=== PATIENT | male | born 1995 | race Caucasian/White ===

== ENCOUNTER 2017-10-16 14:12 | Emergency (ER) | payer OTHER ==
[2017-10-16 14:21] VITALS: BP 140/67; PULSE 108; RESP 18; TEMP 98
[2017-10-16] MEDS ORDERED: DIPH,PERTUS(ACELL)TETVAC-LF 0.5 ML VIAL IM ONE (14:23)
--- NOTE | 2017-10-16 15:27 | XR ---
EXAMINATION TYPE: XR toes RT DATE OF EXAM: 10/16/2017 COMPARISON: NONE HISTORY: Staple gun injury. Pain TECHNIQUE: 3 views FINDINGS: I see no fracture nor dislocation. Joint spaces are normal. There is no sign of a foreign b juan luis. IMPRESSION: Normal right big toe exam.
--- NOTE | 2017-10-16 15:29 | ED ---
General Adult HPI - General Chief complaint: Skin/Abscess/Foreign Body Stated complaint: stepped on metal staple Time Seen by Provider: 10/16/17 14:23 Source: patient, RN notes reviewed Mode of arrival: ambulatory Limitations: no limitations - History of Present Illness Initial comments: 22-year-old male presents to the emergency department for a chief complaint of toe injury earlier today. Patient states there was a stable in his shoe and he stepped on it while putting his shoe on. Patient denies that the staple went through the sole of his shoe. Patient was able to pull out the staple. Patient has not yet cleaned the toe thoroughly. Patient states the toe is somewhat tender to touch. Patient denies any other injuries. Patient did not fall or hit his head.Patient has no other complaints at this time including shortness of breath, chest pain, abdominal pain, nausea or vomiting, headache, or visual changes. - Related Data Previous Rx's Medication Instructions Recorded Omeprazole [PriLOSEC] 20 mg PO AC-BRKFST #30 cap 08/22/14 Ondansetron Odt [Zofran Odt] 4 mg PO Q8HR PRN #10 tab 08/22/14 Amoxicillin/Potassium Clav 1 tab PO Q12HR #20 tab 10/16/17 [Augmentin 875-125 Tablet] Ibuprofen [Motrin] 600 mg PO Q8HR PRN #20 tab 10/16/17 Allergies Allergy/AdvReac Type Severity Reaction Status Date / Time No Known Allergies Allergy Verified 10/16/17 14:21 Review of Systems ROS Statement: Those systems with pertinent positive or pertinent negative responses have been documented in the HPI. ROS Other: All systems not noted in ROS Statement are negative. Past Medical History Past Medical History: No Reported History History of Any Multi-Drug Resistant Organisms: None Reported Past Surgical History: Hernia Repair, Orthopedic Surgery Additional Past Surgical History / Comment(s): eye, Past Psychological History: No Psychological Hx Reported Smoking Status: Current every day smoker Past Alcohol Use History: None Reported Past Drug Use History: Marijuana General Exam Limitations: no limitations General appearance: alert, in no apparent distress Head exam: Present: atraumatic, normocephalic, normal inspection Eye exam: Present: normal appearance ENT exam: Present: normal exam, mucous membranes moist Neck exam: Present: normal inspection, full ROM Respiratory exam: Present: normal lung sounds bilaterally. Absent: respiratory distress, wheezes, rales, rhonchi, stridor Cardiovascular Exam: Present: regular rate, normal rhythm, normal heart sounds. Absent: systolic murmur, diastolic murmur, rubs, gallop, clicks Extremities exam: Present: full ROM (Full range of motion of the right great toe ), tenderness (Mild tenderness to the plantar aspect of the right great toe), normal capillary refill (Refill less than 2 seconds and radial pulse 2+ in the right lower extremity.), other (There is no visible skin defect in the plantar aspect of the right great toe. No foreign bodies identified. No signs of infection or cellulitic changes.). Absent: pedal edema, joint swelling (No swelling noted) Course Vital Signs 10/16/17 14:19 Temperature 98 F Pulse Rate 108 H Respiratory 18 Rate Blood Pressure 140/67 O2 Sat by Pulse 100 Oximetry Medical Decision Making - Medical Decision Making 22-year-old male presents to the emergency determine for chief complaint of right toe injury. Patient had a staple inside of his shoe that he stepped on and pulled out. Patient denies that the staple went through the sole of her shoe but fell in his shoe instead. Patient is able to walk on it. On exam patient has full range of motion of the toe with mild tenderness on the plantar aspect. No signs of infection. No breaks in the skin that are visible. X-ray shows no acute fracture or foreign body. Patient was given a tetanus shot in the emergency department. Patient was given Augmentin which she was educated to take if he notices any signs of infection. He is educated that he probably doesn't need the Augmentin so only to take if he sees any spreading redness or drainage from the area.. He will do warm soaks of the foot. Foot was soaked in warm soapy water in the emergency department. He will return to the emergency department if he has any other worsening symptoms. He will follow up with primary care in 1-2 days. Disposition Clinical Impression: Puncture wound of toe Disposition: HOME SELF-CARE Condition: Good Instructions: Puncture Wound (ED), RICE Therapy (ED) Additional Instructions: Please take antibiotic as directed. Please take Motrin for pain. Rest ice and elevate the right foot. Do warm soaks of the right foot to prevent infection. Follow-up with primary care in 1-2 days. Return to the emergency department if you have any worsening symptoms including worsening pain or fever or signs of infection. Prescriptions: Amoxicillin/Potassium Clav [Augmentin 875-125 Tablet] 1 tab PO Q12HR #20 tab Ibuprofen [Motrin] 600 mg PO Q8HR PRN #20 tab PRN Reason: Pain Is patient prescribed a controlled substance at d/c from ED?: No Referrals: Tejas Thompson MD [Primary Care Provider] - 1-2 days Time of Disposition: 15:28
== END 2017-10-16 15:38 | disposition home or self-care (01) ==
LOC: EC 14:12
DX: S91.131A Puncture wound without foreign body of right great toe without damage to nail, initial encounter (principal); F17.200 Nicotine dependence, unspecified, uncomplicated; Z23 Encounter for immunization; W26.8XXA Contact with other sharp object(s), not elsewhere classified, initial encounter; Y92.69 Other specified industrial and construction area as the place of occurrence of the external cause; Y99.0 Civilian activity done for income or pay
CPT/HCPCS: 90471; 90715; 99283

== ENCOUNTER 2018-10-03 09:44 | Inpatient (IN) | payer OTHER ==
[2018-10-03] MEDS ORDERED: PANTOPRAZOLE 40 MG/10 ML VIAL IVP STA (10:06)
[2018-10-03] MEDS ORDERED: SODIUM CHLORIDE 0.9% 1,000 ML IV STA ×2 (10:06)
--- NOTE | 2018-10-03 10:09 | ED ---
GI Bleed HPI <RodgerSilvano - Last Filed: 10/03/18 10:59> - General Source: patient, RN notes reviewed, old records reviewed Mode of arrival: ambulatory Limitations: no limitations <Carli Cuevasily - Last Filed: 10/03/18 11:08> - General Chief complaint: GI Bleed Stated complaint: rectal bleed-very pale Time Seen by Provider: 10/03/18 09:59 - History of Present Illness Initial comments: Patient is a 23-year-old male who presents emergency department today with 1 month of right right red blood per rectum after having a bowel movement. He states over the past 2 weeks is been increasingly fatigued, feeling dizzy, had near syncopal episodes. Patient arrives to emergency department today with his family appearing very pale. Patient reports he did have a lot of bright red blood in the toilet today after having a BM. Patient reports that he will have occasional soft and hard stools. He has no significant past medical history, is not on blood thinners. Patient states that he's had no other symptoms including abdominal pain, nausea or vomiting. Patient states that he had a previous herni a repair surgery many years ago by Dr. Ponce. (Helen Cuevas) - Related Data Home Medications Medication Instructions Recorded Confirmed Acetaminophen Tab [Tylenol Tab] 1,000 mg PO Q6HR PRN 10/03/18 10/03/18 Ibuprofen [Motrin Ib] 400 mg PO Q6H PRN 10/03/18 10/03/18 Allergies Allergy/AdvReac Type Severity Reaction Status Date / Time No Known Allergies Allergy Verified 10/03/18 10:10 Review of Systems ROS Other: All systems not noted in ROS Statement are negative. <Silvano Soares - Last Filed: 10/03/18 10:59> ROS Other: All systems not noted in ROS Statement are negative. <Helen Cuevas - Last Filed: 10/03/18 11:08> ROS Statement: Those systems with pertinent positive or pertinent negative responses have been documented in the HPI. Past Medical History Past Medical History: No Reported History History of Any Multi-Drug Resistant Organisms: None Reported Past Surgical History: Hernia Repair, Orthopedic Surgery Additional Past Surgical History / Comment(s): eye, Past Psychological History: No Psychological Hx Reported Smoking Status: Former smoker Past Alcohol Use History: None Reported Past Drug Use History: Marijuana <FaithHelen - Last Filed: 10/03/18 11:08> General Exam Limitations: no limitations General appearance: alert, in no apparent distress Head exam: Present: atraumatic, normocephalic, normal inspection Eye exam: Present: normal appearance, PERRL, EOMI. Absent: scleral icterus, conjunctival injection, periorbital swelling ENT exam: Present: normal exam, mucous membranes moist Neck exam: Present: normal inspection. Absent: tenderness, meningismus, lymphadenopathy Respiratory exam: Present: normal lung sounds bilaterally. Absent: respiratory distress, wheezes, rales, rhonchi, stridor Cardiovascular Exam: Present: normal rhythm, tachycardia (Tachycardic, 130 bpm.), normal heart sounds. Absent: regular rate, systolic murmur, diastolic murmur, rubs, gallop, clicks GI/Abdominal exam: Present: soft, normal bowel sounds. Absent: distended, tenderness, guarding, rebound, rigid Rectal exam: Present: normal inspection, hemorrhoids (External hemorrhoids, no significant bleeding noted.) Extremities exam: Present: normal inspection, full ROM, normal capillary refill. Absent: tenderness, pedal edema, joint swelling, calf tenderness Back exam: Present: normal inspection Neurological exam: Present: alert, oriented X3, CN II-XII intact Psychiatric exam: Present: normal affect, normal mood Skin exam: Present: warm, dry, intact, normal color, pallor (Injectable pallor, tongue pallor noted.). Absent: rash <FaithHelen - Last Filed: 10/03/18 11:08> - General Exam Comments Initial Comments: 23-year-old male. Patient appears very pale, weak. (Helen Cuevas) Course <Silvano Soares - Last Filed: 10/03/18 10:59> Vital Signs 10/03/18 09:50 Temperature 99.4 F Pulse Rate 130 H Respiratory 18 Rate Blood Pressure 126/66 O2 Sat by Pulse 100 Oximetry - Reevaluation(s) Reevaluation #1: 10/03/18 10:59 PA supervision: I proceeded [id number] evaluation the patient she's been suffering from intermittent rectal bleeding for the past month is feeling very weak lightheaded he states he's had a call to get anywhere in his house. No nausea vomiting. No history of any GI complaints or abnormalities. He was found to be very anemic and pale upon examination he does have a hemoglobin level II.5. Patient will be admitted to intensive care unit blood transfusions have been ordered. GI as well as ICU will be consulted. (Silvano Soares) Medical Decision Making - Lab Data Result diagrams: 10/03/18 10:25 10/03/18 10:25 <Silvano Soares - Last Filed: 10/03/18 10:59> - Lab Data Result diagrams: 10/03/18 10:25 10/03/18 10:25 <Helen Cuevas - Last Filed: 10/03/18 11:08> - Medical Decision Making Patient is a 23-year-old male presents emergency department today for evaluation for bloody bowel movements for the past month. Over the past week he's had increasing fatigue, shortness of breath, near-syncopal episodes. He rinsed emergency department extremely pale. Generalized weakness. Patient had lab work and IV initiated. Patient's hemoglobin is significantly low at 2.5. On rectal exam he does have some minor external hemorrhoids but no significant bleeding noted at this time. Patient was given 3 units of PRBCs. Patient case assessment Dr. Soares who also examined the Patient. Patient was admitted to the ICU for low hemoglobin, lower GI bleed. Patient's family relates that he has a positive family history for Crohn's disease. He denies any abdominal pain at this time. (Helen Cuevas) - Lab Data Lab Results 10/03/18 10/03/18 10/03/18 Range/Units 10:25 10:25 10:25 WBC 4.4 (3.8-10.6) k/uL RBC 1.61 L (4.30-5.90) m/uL Hgb 2.5 L* (13.0-17.5) gm/dL Hct 9.9 L* (39.0-53.0) % MCV 61.8 L (80.0-100.0) fL MCH 15.5 L (25.0-35.0) pg MCHC 25.0 L (31.0-37.0) g/dL RDW 18.6 H (11.5-15.5) % Plt Count 225 (150-450) k/uL Neutrophils % 58 % Lymphocytes % 29 % Monocytes % 8 % Eosinophils % 2 % Basophils % 1 % Neutrophils # 2.6 (1.3-7.7) k/uL Lymphocytes # 1.3 (1.0-4.8) k/uL Monocytes # 0.3 (0-1.0) k/uL Eosinophils # 0.1 (0-0.7) k/uL Basophils # 0.1 (0-0.2) k/uL Hypochromasia Marked Poikilocytosis Moderate Anisocytosis Slight Microcytosis Marked Sodium 139 (137-145) mmol/L Potassium 3.5 (3.5-5.1) mmol/L Chloride 108 H (98-107) mmol/L Carbon Dioxide 23 (22-30) mmol/L Anion Gap 8 mmol/L BUN 8 L (9-20) mg/dL Creatinine 0.75 (0.66-1.25) mg/dL Est GFR (CKD-EPI)AfAm >90 (>60 ml/min/1.73 sqM) Est GFR (CKD-EPI)NonAf >90 (>60 ml/min/1.73 sqM) Glucose 90 (74-99) mg/dL Plasma Lactic Acid Ankur 2.0 (0.7-2.0) mmol/L Calcium 9.0 (8.4-10.2) mg/dL Total Bilirubin 0.2 (0.2-1.3) mg/dL AST 11 L (17-59) U/L ALT 19 L (21-72) U/L Alkaline Phosphatase 44 (38-126) U/L Total Protein 6.4 (6.3-8.2) g/dL Albumin 4.2 (3.5-5.0) g/dL Stool Occult Blood (Negative) 10/03/18 Range/Units 10:42 WBC (3.8-10.6) k/uL RBC (4.30-5.90) m/uL Hgb (13.0-17.5) gm/dL Hct (39.0-53.0) % MCV (80.0-100.0) fL MCH (25.0-35.0) pg MCHC (31.0-37.0) g/dL RDW (11.5-15.5) % Plt Count (150-450) k/uL Neutrophils % % Lymphocytes % % Monocytes % % Eosinophils % % Basophils % % Neutrophils # (1.3-7.7) k/uL Lymphocytes # (1.0-4.8) k/uL Monocytes # (0-1.0) k/uL Eosinophils # (0-0.7) k/uL Basophils # (0-0.2) k/uL Hypochromasia Poikilocytosis Anisocytosis Microcytosis Sodium (137-145) mmol/L Potassium (3.5-5.1) mmol/L Chloride (98-107) mmol/L Carbon Dioxide (22-30) mmol/L Anion Gap mmol/L BUN (9-20) mg/dL Creatinine (0.66-1.25) mg/dL Est GFR (CKD-EPI)AfAm (>60 ml/min/1.73 sqM) Est GFR (CKD-EPI)NonAf (>60 ml/min/1.73 sqM) Glucose (74-99) mg/dL Plasma Lactic Acid Ankur (0.7-2.0) mmol/L Calcium (8.4-10.2) mg/dL Total Bilirubin (0.2-1.3) mg/dL AST (17-59) U/L ALT (21-72) U/L Alkaline Phosphatase (38-126) U/L Total Protein (6.3-8.2) g/dL Albumin (3.5-5.0) g/dL Stool Occult Blood Negative (Negative) Critical Care Time Critical Care Time: Yes Total Critical Care Time: 35 <Helen Cuevas - Last Filed: 10/03/18 11:08> Critical Care Time: Crit is 35 minutes of critical care time was completed for this Patient has significant anemia due to lower GI bleed. He denied any abdominal pain at this time. Was 2.5. Patient refused received 3 units of PRBCs. Consults to critical care after school program coordinator, GI specialist, patient's PCP. (Helen Cuevas) Disposition <Silvano Soares - Last Filed: 10/03/18 10:59> Is patient prescribed a controlled substance at d/c from ED?: No Time of Disposition: 11:08 <Helen Cuevas - Last Filed: 10/03/18 11:08> Clinical Impression: Lower GI bleeding, Abnormal hemoglobin, Signs and symptoms of anemia Disposition: ADMITTED IP TO THIS HOSP Condition: Stable Referrals: Tejas Thompson MD [Primary Care Provider] - 1-2 days
[2018-10-03 10:41] LABS: Anisocytosis Slight; Basophils # (A) 0.1 k/uL (0-0.2); Basophils % (A) 1 %; Eosinophils # (A) 0.1 k/uL (0-0.7); Eosinophils % (A) 2 %; Hypochromasia Marked; Lymphocytes # (A) 1.3 k/uL (1.0-4.8); Lymphocytes % (A) 29 %; MCH 15.5 pg (25.0-35.0); MCV 61.8 fL (80.0-100.0); Mean Platelet Volume 7.9; Microcytosis Marked; Monocytes # (A) 0.3 k/uL (0-1.0); Monocytes % (A) 8 %; Neutrophils # (A) 2.6 k/uL (1.3-7.7); Neutrophils % (A) 58 %; Platelet Count 225 k/uL (150-450); Poikilocytosis Moderate; RBC 1.61 m/uL (4.30-5.90); RDW 18.6 % (11.5-15.5); WBC 4.4 k/uL (3.8-10.6)
[2018-10-03 10:49] LABS: HGB 2.5 gm/dL (13.0-17.5)
[2018-10-03 10:50] LABS: ALT 19 U/L (21-72); AST 11 U/L (17-59); African American GFR (CKD) >90 (>60 ml/min/1.73 sqM); Albumin 4.2 g/dL (3.5-5.0); Alkaline Phosphatase 44 U/L (38-126); Anion Gap 8 mmol/L; Blood Urea Nitrogen 8 mg/dL (9-20); Carbon Dioxide 23 mmol/L (22-30); Chloride 108 mmol/L (98-107); Glucose 90 mg/dL (74-99); HCT 9.9 % (39.0-53.0); Potassium 3.5 mmol/L (3.5-5.1); Sodium 139 mmol/L (137-145); Total Bilirubin 0.2 mg/dL (0.2-1.3); Total Protein 6.4 g/dL (6.3-8.2)
[2018-10-03] MEDS ORDERED: ACETAMINOPHEN IV (For NPO) 1,000 MG in EMPTY BAG 1 BAG IVPB ONE (11:08)
[2018-10-03] MEDS ORDERED: NALOXONE 0.4 MG/ML 1 ML VIAL IV PRN (11:08)
[2018-10-03 11:18] LABS: Mixed Population RBC Present; Ovalocytes Present
[2018-10-03] MEDS ORDERED: ACETAMINOPHEN TAB 500 MG TAB PO ONE (11:30)
[2018-10-03 12:05] LABS: African American GFR (CKD) >90 (>60 ml/min/1.73 sqM); Anion Gap 7 mmol/L; Blood Urea Nitrogen 8 mg/dL (9-20); Calcium 8.4 mg/dL (8.4-10.2); Carbon Dioxide 22 mmol/L (22-30); Chloride 111 mmol/L (98-107); Glucose 87 mg/dL (74-99); Phosphorus 3.1 mg/dL (2.5-4.5); Potassium 3.6 mmol/L (3.5-5.1); Sodium 140 mmol/L (137-145)
[2018-10-03 12:33] LABS: Anisocytosis Slight; Basophils % (A) 1 %; Eosinophils # (A) 0.1 k/uL (0-0.7); Eosinophils % (A) 2 %; Hypochromasia Marked; Lymphocytes # (A) 1.1 k/uL (1.0-4.8); Lymphocytes % (A) 25 %; MCH 15.4 pg (25.0-35.0); MCHC 24.2 g/dL (31.0-37.0); MCV 63.8 fL (80.0-100.0); Mean Platelet Volume 8.9; Microcytosis Marked; Monocytes # (A) 0.3 k/uL (0-1.0); Monocytes % (A) 8 %; Neutrophils # (A) 2.7 k/uL (1.3-7.7); Neutrophils % (A) 63 %; Platelet Count 227 k/uL (150-450); Poikilocytosis Moderate; RBC 1.42 m/uL (4.30-5.90); RDW 18.6 % (11.5-15.5); WBC 4.3 k/uL (3.8-10.6)
[2018-10-03 12:44] LABS: HGB 2.2 gm/dL (13.0-17.5)
[2018-10-03 13:01] LABS: INR 1.1 (<1.2); Prothrombin Time 11.2 sec (9.0-12.0)
[2018-10-03 13:19] LABS: Partial Thromboplastin Time 20.6 sec (22.0-30.0)
[2018-10-03 13:19] LABS: Appearance,Urine Clear (Clear); Bilirubin,Urine Negative (Negative); Blood,Urine Negative (Negative); Color,Urine Colorless; Glucose,Urine (UA) Negative (Negative); Ketones,Urine Negative (Negative); Leukocyte Esterase,Urine Negative (Negative); Nitrite,Urine Negative (Negative); Protein,Urine Negative (Negative); Specific Gravity,Urine 1.008 (1.001-1.035); Urobilinogen,Urine <2.0 mg/dL (<2.0)
[2018-10-03 14:54] LABS: Glucose,Whole Blood 102 mg/dL (75-99)
--- NOTE | 2018-10-03 18:55 | CONS ---
CONSULTATION PULMONARY CRITICAL CARE CONSULTATION: DATE OF CONSULTATION: 10/03/2018 This is a 23-year-old male who presents to the emergency department with one month of bright red blood per rectum. The patient states he got so weak he was just basically crawling around at home. The patient states he has been feeling fatigued, weak and dizzy. He apparently also had a near episode of passing out. The patient presented to the emergency department quite pale. The patient was found to have a hemoglobin of 2.2. The patient states that he has been having bright red bleeding for at least 3-4 weeks. He has no past medical history other than hernia repair. The patient is not on any blood thinners. The patient denies any major medical problems. He takes no medications at home on a regular basis. The patient is currently on O2 at 2 L. He is getting an IV of 0.9 at 100 mL an hours and 3 units of PRBCs have been ordered. HOME MEDICATIONS: Include only Tylenol and Motrin p.r.n. ALLERGIES: Denied. MEDICAL HISTORY AND SURGICAL HISTORY: Unremarkable say for hernia repair. SOCIAL HISTORY: Positive for previous tobacco use. Does not smoke currently. No significant alcohol use. He does smoke marijuana. FAMILY HISTORY: Noncontributory. REVIEW OF SYSTEMS: CONSTITUTIONAL: Profound weakness and fatigue. NEUROLOGIC: Near syncope, dizziness. HEENT: Negative. CARDIOVASCULAR: Negative. PULMONARY: Negative. GI: Bright red bleeding per rectum. : Negative. RHEUMATOLOGIC: Negative. IMMUNOLOGIC: Negative. HEMATOLOGIC: Negative. DERMATOLOGIC: Negative. PHYSICAL EXAMINATION: Current vital signs are reviewed. Temperature 98.4, heart rate 74, respiratory rate 18, blood pressure 115/61, mean 79, 2 L saturation is 100%. Appears in no acute distress. HEENT examination is grossly unremarkable. Mucous membranes are dry. Mucosa are pale. NECK: Supple. Full range of motion. No adenopathy, thyromegaly or neck vein distention. CARDIOVASCULAR examination reveals regular rhythm rate. Heart rate 74. S1, S2 normal. There is no murmur. LUNGS: Clear. Breath sounds equal. No wheezes, rhonchi, or crackles. ABDOMEN: Soft. Bowel sounds are heard. No masses or tenderness. EXTREMITIES: Intact. No cyanosis, clubbing, or edema. Skin is very pale. No rashes. NEUROLOGIC examination is brief but nonfocal. LAB DATA: Reviewed. White count 4.3, hemoglobin 2.2, hematocrit 9, platelet count 327,000. PT/INR and PTT essentially normal. Sodium 140, potassium 3.6, chloride 111, CO2 of 22, anion gap is 7. BUN and creatinine were 8 and 0.7. The rest of the labs look pretty normal. Urine is negative. Med list is reviewed. He is on Tylenol, Narcan, Protonix and a 0.9 IV. No chest x-ray was done. EKG showed normal sinus rhythm. Heart rate is about 100 beats per minute. ASSESSMENT: 1. Bright red bleeding per rectum, going on for at least 2-3 maybe even 4 weeks with profound anemia and hemoglobin of 2.2. 2. Weakness, fatigue, dizziness and near syncope all related to the profound anemia secondary to gastrointestinal bleed. 3. History of marijuana use. 4. Previous hernia repair. PLAN: The patient will have 3 units of blood. Hemoglobin will be checked afterwards. Each unit of blood should increase the hemoglobin by 1.2 g. This should get him up to close to about 7. He may need 1 more unit afterwards. We will check the hemoglobin after the 3rd unit. GI has been consulted. We will house him here in the ICU for at least 24 hours. Additional recommendations and suggestions are forthcoming. Prognosis is guarded. We will continue to follow closely. MMODL / IJN: [id number] /
[2018-10-03 20:50] LABS: Anisocytosis Moderate; Hypochromasia Marked; MCHC 29.9 g/dL (31.0-37.0); Mean Platelet Volume 9.7; Microcytosis Marked; Platelet Count 133 k/uL (150-450); Poikilocytosis Marked; RBC 2.28 m/uL (4.30-5.90); RDW 20.8 % (11.5-15.5); WBC 5.2 k/uL (3.8-10.6)
[2018-10-03 20:59] LABS: HCT 16.7 % (39.0-53.0)
[2018-10-03 21:00] LABS: MCV 73.5 fL (80.0-100.0)
[2018-10-03] MEDS: SODIUM CHLORIDE 0.9% 1,000 ML IV SCH ×2 (21:57→23:07)
[2018-10-04 02:11] LABS: Anisocytosis Moderate; Hypochromasia Marked; MCH 22.2 pg (25.0-35.0); MCHC 29.8 g/dL (31.0-37.0); MCV 74.7 fL (80.0-100.0); Microcytosis Marked; Platelet Count 177 k/uL (150-450); Poikilocytosis Marked; RBC 2.68 m/uL (4.30-5.90); RDW 22.5 % (11.5-15.5); WBC 5.3 k/uL (3.8-10.6)
[2018-10-04 02:13] LABS: HGB 5.9 gm/dL (13.0-17.5)
[2018-10-04 06:53] LABS: Anisocytosis Moderate; Basophils % (A) 1 %; Eosinophils # (A) 0.1 k/uL (0-0.7); Eosinophils % (A) 2 %; HCT 23.2 % (39.0-53.0); HGB 7.1 gm/dL (13.0-17.5); Hypochromasia Marked; Lymphocytes # (A) 1.3 k/uL (1.0-4.8); Lymphocytes % (A) 28 %; MCH 23.5 pg (25.0-35.0); MCHC 30.4 g/dL (31.0-37.0); MCV 77.3 fL (80.0-100.0); Mean Platelet Volume 8.8; Microcytosis Marked; Monocytes # (A) 0.4 k/uL (0-1.0); Monocytes % (A) 8 %; Neutrophils # (A) 2.7 k/uL (1.3-7.7); Neutrophils % (A) 59 %; Platelet Count 163 k/uL (150-450); Poikilocytosis Marked; WBC 4.5 k/uL (3.8-10.6)
[2018-10-04 07:08] LABS: African American GFR (CKD) >90 (>60 ml/min/1.73 sqM); Anion Gap 5 mmol/L; Blood Urea Nitrogen 9 mg/dL (9-20); Calcium 8.5 mg/dL (8.4-10.2); Carbon Dioxide 23 mmol/L (22-30); Chloride 112 mmol/L (98-107); Glucose 94 mg/dL (74-99); Phosphorus 3.3 mg/dL (2.5-4.5); Potassium 3.8 mmol/L (3.5-5.1); Sodium 140 mmol/L (137-145)
[2018-10-04] MEDS: SODIUM CHLORIDE 0.9% 1,000 ML IV SCH ×2 (08:39→17:03)
--- NOTE | 2018-10-04 08:44 | PN ---
PROGRESS NOTE DATE OF SERVICE: 10/04/2018 This is a 23-year-old male who I saw yesterday in consultation for GI bleed. The patient was having about a month's worth of bright red bleeding per rectum. When he presented to the emergency department yesterday, he was very pale. He was complaining of fatigue, weakness, dizziness, lightheadedness. He was found to have a hemoglobin of 2.2. Since he has been here, he has received a total of 5 units of PRBCs. Prior to the last unit, his hemoglobin was 5.9. He is not receiving any supplemental oxygen. His IV is running at 100 mL an hours saline. He is feeling a bit better. He was sleeping when I entered the room. His mother was in the room. The patient denies any major medical problems. He does take Tylenol and Motrin p.r.n. He does smoke marijuana. He denies significant alcohol intake. A couple times over the last couple of weeks, he felt so bad that he thought he was going to pass out. For that reason, he has been crawling around the house. Gastroenterology has been consulted, but they have not seen the patient as yet. PHYSICAL EXAMINATION: VITAL SIGNS: Current vital signs are good. Temperature 98, heart rate 65, respiratory rate 21, blood pressure 95/55, mean 68, saturations 98%. GENERAL: Appears in no acute distress. HEENT: Examination is grossly unremarkable. Mucous membranes are moist. NECK: Supple. Full range of motion. No adenopathy, thyromegaly or neck vein distention. CARDIOVASCULAR: Examination reveals regular rhythm and rate. Heart rate 65. It is regular. S1, S2 normal. LUNGS: Reveal clear breath sounds. No wheezes or rhonchi. Crackles are not appreciated. ABDOMEN: Soft. Bowel sounds are heard. EXTREMITIES: Are intact. No cyanosis, clubbing, or edema. SKIN: Is pale, but improved from yesterday. NEUROLOGIC: Examination is brief but nonfocal. LABS: Labs are reviewed. Most recent hemoglobin is 5.9, as I mentioned. That was before the 5th unit. The rest of his labs look pretty good. X-RAY: No chest x-ray was done. MEDICATIONS: His medications currently include Tylenol, Narcan, Protonix and his IV. ASSESSMENT: 1. Bright red bleeding per rectum going on for at least 2 to 3 weeks and maybe even 4 weeks with profound blood loss anemia, and a presenting hemoglobin of 2.2. 2. Status post 5 units of PRBCs with most recent hemoglobin being 5.9. 3. Weakness, fatigue, dizziness, and near syncope, all related to the profound anemia. 4. History of marijuana use. 5. Previous history of hernia repair. PLAN: The patient has a pending hemoglobin this morning. He has received a total of 5 units of PRBCs. Hopefully he is above 7. If he is below 7, he should receive another unit of blood. GI has been consulted, but has not seen the patient as yet. The patient is hemodynamically stable. The patient is not having any active bleeding at this time. We will continue to follow closely. His prognosis is guarded. No additional recommendations are made. MMODL / CAMILLEN: [id number] /
[2018-10-04] MEDS ORDERED: PANTOPRAZOLE 40 MG/10 ML VIAL IV SCH (09:00)
[2018-10-04] MEDS ORDERED: BISACODYL 5 MG TABLET.DR PO STA (11:29)
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
[2018-10-04] MEDS ORDERED: PEG 3350-NA SULF,BICARB,CL/KCL 4,000 ML BOTTLE PO ONE (16:00)
--- NOTE | 2018-10-04 18:23 | HP ---
HISTORY AND PHYSICAL CHIEF COMPLAINT: Weakness and inability to ambulate. HISTORY OF PRESENT ILLNESS: This is the first known admission for this 23-year-old white male. He has been passing bright red blood for a month. He got to the point where he could not walk. He tried to walk across room and collapsed. He came to the emergency room, his hemoglobin was 2.5. REVIEW OF SYSTEMS: He has had no headaches, neurologic problems, shortness of breath, chest pain, heart disease, abdominal pain, tenesmus, hematuria, renal disease, diabetes, etc. Past medical history, family history personal and social history reveal that he is on no medication, not allergic to any and has had no surgery. He does not drink alcohol. He smokes marijuana. PHYSICAL EXAM: Blood pressure is 95/52 with a pulse of 88, respirations of 35, and he is afebrile. GENERAL: He appeared to be pale, in no acute distress. Skin color is normal. Skin is warm, dry. Skin color is normal pallor, skin was dry. Lymph nodes not enlarged. Head, ears, eyes, nose, mouth, and throat were normal. Neck veins not distended. Thyroid is not enlarged. Chest is clear. Cardiac exam is normal. Abdomen is soft, nontender. Extremities: Normal. Neurologically he is intact. Rectal was not performed at this time. IMPRESSION: 1. Lower gastrointestinal bleed. 2. Anemia. PLAN: 1. Bed rest. 2. IV fluids. 3. Transfuse. 4. Consult with Gastroenterology. MMTAVARES / CAMILLEN: [id number] /
--- NOTE | 2018-10-04 18:38 | PN ---
PROGRESS NOTE DATE OF SERVICE: 10/04/2018 CHIEF COMPLAINT: Anemia and lower GI bleed. HISTORY OF PRESENT ILLNESS: This gentleman is doing well. His hemoglobin is up to 7.9. He has had no pain and he has not had any further bleeding. PHYSICAL EXAMINATION: Unchanged. Chest is clear. Cardiac exam is normal. IMPRESSION: 1. Blood loss anemia. 2. Lower gastrointestinal bleed. PLAN: Continue with IV fluids and await endoscopy. MMODL / IJN: [id number] /
[2018-10-04 18:52] LABS: Anisocytosis Slight; Basophils % (A) 1 %; Eosinophils # (A) 0.1 k/uL (0-0.7); Eosinophils % (A) 1 %; HCT 22.4 % (39.0-53.0); Hypochromasia Marked; Lymphocytes # (A) 1.4 k/uL (1.0-4.8); Lymphocytes % (A) 26 %; MCH 23.9 pg (25.0-35.0); MCHC 31.1 g/dL (31.0-37.0); MCV 76.9 fL (80.0-100.0); Mean Platelet Volume 8.8; Microcytosis Moderate; Monocytes # (A) 0.4 k/uL (0-1.0); Monocytes % (A) 8 %; Neutrophils # (A) 3.3 k/uL (1.3-7.7); Neutrophils % (A) 62 %; Platelet Count 148 k/uL (150-450); Poikilocytosis Marked; RBC 2.91 m/uL (4.30-5.90); RDW 19.9 % (11.5-15.5); WBC 5.3 k/uL (3.8-10.6)
[2018-10-05 01:32] LABS: Anisocytosis Moderate; HCT 22.4 % (39.0-53.0); HGB 7.1 gm/dL (13.0-17.5); Hypochromasia Marked; MCH 24.2 pg (25.0-35.0); MCHC 31.7 g/dL (31.0-37.0); MCV 76.4 fL (80.0-100.0); Mean Platelet Volume 8.6; Microcytosis Moderate; Platelet Count 176 k/uL (150-450); Poikilocytosis Marked; RBC 2.93 m/uL (4.30-5.90); RDW 20.5 % (11.5-15.5); WBC 5.4 k/uL (3.8-10.6)
[2018-10-05 05:26] LABS: Anisocytosis Moderate; Basophils % (A) 1 %; Eosinophils # (A) 0.1 k/uL (0-0.7); Eosinophils % (A) 2 %; HCT 21.8 % (39.0-53.0); Hypochromasia Marked; Lymphocytes # (A) 1.3 k/uL (1.0-4.8); Lymphocytes % (A) 26 %; MCH 24.1 pg (25.0-35.0); MCHC 31.2 g/dL (31.0-37.0); MCV 77.2 fL (80.0-100.0); Mean Platelet Volume 8.6; Microcytosis Moderate; Monocytes # (A) 0.4 k/uL (0-1.0); Monocytes % (A) 9 %; Neutrophils # (A) 3.1 k/uL (1.3-7.7); Neutrophils % (A) 62 %; Platelet Count 174 k/uL (150-450); Poikilocytosis Marked; RBC 2.82 m/uL (4.30-5.90); RDW 20.2 % (11.5-15.5)
[2018-10-05 05:38] LABS: HGB 6.8 gm/dL (13.0-17.5)
[2018-10-05 05:39] LABS: African American GFR (CKD) >90 (>60 ml/min/1.73 sqM); Anion Gap 7 mmol/L; Blood Urea Nitrogen 8 mg/dL (9-20); Calcium 8.4 mg/dL (8.4-10.2); Carbon Dioxide 22 mmol/L (22-30); Chloride 110 mmol/L (98-107); Glucose 85 mg/dL (74-99); Potassium 3.4 mmol/L (3.5-5.1); Sodium 139 mmol/L (137-145)
[2018-10-05] MEDS: POTASSIUM CHLORIDE ER 20 MEQ TAB.ER PO SCH ×2 (06:58→08:32)
[2018-10-05] MEDS: SODIUM CHLORIDE 0.9% 1,000 ML IV SCH ×2 (06:58→16:11)
[2018-10-05] MEDS: PANTOPRAZOLE 40 MG/10 ML VIAL IVP SCH (08:32)
--- NOTE | 2018-10-05 09:15 | PN ---
PROGRESS NOTE DATE OF SERVICE: 10/05/2018 A 23-year-old male seen in consultation for GI bleed. He has had about a months' worth of bright red bleeding per rectum. He presented to the emergency department with weakness, fatigue, dizziness, lightheadedness and hemoglobin of 2.2. He has received a number of units of blood. I believe 5 units as of yesterday and he is going to receive another unit today. This morning's hemoglobin was only 6.8. He is not receiving any supplemental oxygen. He is 0.9 at. He has got a 0.9 IV at 100. He can be turned down to 20 mL an hour. The patient apparently is going to have an EGD and colonoscopy today as well as a possible capsule study. Through the night, he has had about 4 bloody bowel movement. He has been stable from the hemodynamic and respiratory standpoint. PHYSICAL EXAMINATION: Current vital signs are reviewed. Temperature is 98.2, heart rate 55, respiratory rate 12, blood pressure 116/60, mean 78, saturations are 97% on room air. He appears in no acute distress. Not having any pain. HEENT: Examination is grossly unremarkable. Mucous membranes are moist. NECK: Supple. Full range of motion without adenopathy, thyromegaly or neck vein distention. CARDIOVASCULAR: Examination reveals regular rhythm rate. Heart rate about 55 beats per minute. S1, S2 normal. There is no S3, S4, or murmur. LUNGS: Reveal clear breath sounds equal. No wheezes, rhonchi, or crackles. ABDOMEN: Soft. Bowel sounds are heard. No masses or tenderness. EXTREMITIES: Intact. No cyanosis, clubbing, or edema. SKIN: Without rash. NEUROLOGIC: Examination is nonfocal. LABS: Reviewed. White count 5, hemoglobin 6.8, hematocrit 21.8, platelet count 174,000. Sodium 139, potassium 3.4, chloride is 110, CO2 22, anion gap is normal. BUN and creatinine were 8 and 0.58. No recent x-rays. Medications are reviewed. He is basically on Dulcolax, Narcan, Protonix, GoLYTELY, potassium replacement and a 0.9 IV. ASSESSMENT: 1. Gastrointestinal bleed, with bright red bleeding per rectum, and a presentation hemoglobin of 2.2. The etiology of the bleed is not yet known. The patient is scheduled for an EGD and/or colonoscopy and possible capsule study today. 2. Status post 5 units of PRBCs with a repeat unit being given today. 3. Weakness, fatigue, dizziness, and near syncope, all related to profound anemia. 4. History of marijuana use. 5. Previous history of hernia repair. PLAN: The patient will get 1 unit of blood. That will make 6 total. His hemoglobin this morning was 6.8. The patient has been having ongoing bleeding. It is painless. The patient will have an evaluation today by Gastroenterology including EGD/colonoscopy and possible capsule study. Additional recommendations and suggestions are forthcoming. Prognosis is guarded. He will stay here in the ICU. MMODL / IJN: [id number] /
[2018-10-05 12:47] LABS: Anisocytosis Slight; HCT 27.7 % (39.0-53.0); Hypochromasia Marked; MCH 24.4 pg (25.0-35.0); MCHC 30.5 g/dL (31.0-37.0); MCV 80.1 fL (80.0-100.0); Mean Platelet Volume 9.2; Microcytosis Slight; Platelet Count 175 k/uL (150-450); Poikilocytosis Marked; RBC 3.46 m/uL (4.30-5.90); RDW 19.3 % (11.5-15.5); WBC 5.2 k/uL (3.8-10.6)
[2018-10-05 12:48] LABS: HGB 8.5 gm/dL (13.0-17.5)
[2018-10-05] MEDS ORDERED: LIDOCAINE 1% INJ 10MG/ML (20 ML MDV) ONE (13:56)
[2018-10-05] MEDS ORDERED: PROPOFOL 10 MG/ML 20 ML VIAL IV ONE (13:56)
[2018-10-05] MEDS ORDERED: IV FLUID CONTINUATION 1,000 ML IV ONE (13:57)
--- NOTE | 2018-10-05 14:18 | P.PCN ---
Date of Procedure: 10/05/18 Procedure(s) Performed: Brief history: Patient is a pleasant 23-year-old white male, admitted hospital with a hemoglobin of 2.5 g/dL. His been having lower abdominal pain with rectal bleeding for the last 2 months duration. He was given 5 units of PRBC transfusion and asked hemoglobin was 7.5 g/dL. He is scheduled for an upper endoscopy as well as colonoscopy as a part of evaluation of severe anemia and rectal bleeding. Procedure performed: Esophagogastroduodenoscopy with biopsy Colonoscopy Preoperative diagnosis: Severe anemia and rectal bleeding Anesthesia: MAC Procedure: After informed consent was obtained from the patient was brought into the endoscopy unit and IV sedation was administered by anesthesia under continuous monitoring. Initially upper endoscopy was done. The Olympus GF 160 video endoscope was inserted inserted into the mouth and esophagus intubated without any difficulty and was gradually advanced into the stomach and duodenum and carefully examined. The bulb and second part of the duodenum appeared normal. The scope was then withdrawn into the stomach adequately insufflated with air and upon careful examination the antrum and body, cardia and fundus appeared normal. The scope was then withdrawn into the esophagus. The GE junction was located at 40 cm to the incisors. It appeared regular with no erythema erosions or ulcerations. Rest of the esophagus appeared normal. Patient tolerated the procedure well. At this time the patient continued to remain sedation. Initial digital rectal examination was normal. Olympus CF 160 video colonoscope was then inserted into the rectum and gradually advanced to the cecum without any difficulty. Careful examination was performed as the scope was gradually being withdrawn. The prep was excellent. Terminal ileum was intubated and appeared normal. The cecum, ascending colon, transverse colon, descending colon, sigmoid colon and rectum appeared normal. Retroflexion was performed in the rectum and large internal hemorrhoids with ulceration were noted. Patient tolerated the procedure well. Impression: 1. Upper endoscopy revealed mild antral gastritis but no evidence of esophagitis or peptic ulcer disease 2. Colonoscopy revealed large internal hemorrhoids with ulceration but no active bleeding. Recommendations: Findings of this examination were discussed with the patient as well as his family. He was advised to follow with the biopsy results. Surgical consultation will be obtained. Diet will be advanced as tolerated.
[2018-10-05] MEDS ORDERED: Potassium Replacement Protocol 1 EACH MISC MISCELLANE PRN (17:57)
[2018-10-05] MEDS ORDERED: POTASSIUM CHLORIDE ER 20 MEQ TAB.ER PO ONE (18:00)
--- NOTE | 2018-10-05 18:39 | PN ---
PROGRESS NOTE CHIEF COMPLAINT: Blood loss anemia and GI bleeding. HISTORY OF PRESENT ILLNESS: This gentleman is stable. He is not bleeding any further and he is going down today for a scope. PHYSICAL EXAMINATION: Color is improved. Chest is clear. Cardiac exam is normal. Abdomen is soft, nontender. IMPRESSION: 1. Gastrointestinal bleeding. 2. Blood loss anemia. PLAN: Endoscopy today. MMODL / IJN: [id number] /
[2018-10-06] MEDS: POTASSIUM CHLORIDE ER 20 MEQ TAB.ER PO SCH ×2 (00:43→02:14)
[2018-10-06 04:55] LABS: Anisocytosis Moderate; Basophils # (A) 0.1 k/uL (0-0.2); Basophils % (A) 2 %; Eosinophils # (A) 0.1 k/uL (0-0.7); Eosinophils % (A) 2 %; HCT 24.3 % (39.0-53.0); HGB 7.7 gm/dL (13.0-17.5); Hypochromasia Marked; Lymphocytes # (A) 1.7 k/uL (1.0-4.8); Lymphocytes % (A) 30 %; MCH 25.1 pg (25.0-35.0); MCHC 31.8 g/dL (31.0-37.0); MCV 79.1 fL (80.0-100.0); Mean Platelet Volume 9.4; Microcytosis Moderate; Monocytes # (A) 0.4 k/uL (0-1.0); Monocytes % (A) 7 %; Neutrophils # (A) 3.2 k/uL (1.3-7.7); Neutrophils % (A) 58 %; Platelet Count 186 k/uL (150-450); Poikilocytosis Marked; RBC 3.07 m/uL (4.30-5.90); RDW 20.1 % (11.5-15.5); WBC 5.5 k/uL (3.8-10.6)
[2018-10-06 05:02] LABS: African American GFR (CKD) >90 (>60 ml/min/1.73 sqM); Anion Gap 6 mmol/L; Blood Urea Nitrogen 6 mg/dL (9-20); Calcium 8.9 mg/dL (8.4-10.2); Carbon Dioxide 23 mmol/L (22-30); Chloride 111 mmol/L (98-107); Glucose 86 mg/dL (74-99); Magnesium 1.9 mg/dL (1.6-2.3); Phosphorus 3.8 mg/dL (2.5-4.5); Potassium 4.1 mmol/L (3.5-5.1); Sodium 140 mmol/L (137-145)
[2018-10-06] MEDS: MAGNESIUM SULFATE-D5W PMX 1 GM in DEXTROSE/WATER 1 100ML.BAG IVPB SCH ×2 (05:24→06:51)
[2018-10-06 06:50] LABS: INR 1.1 (<1.2)
[2018-10-06] MEDS: SODIUM CHLORIDE 0.9% 1,000 ML IV SCH ×3 (07:05→23:37)
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
[2018-10-06] MEDS: PANTOPRAZOLE 40 MG/10 ML VIAL IVP SCH (09:13)
--- NOTE | 2018-10-06 09:48 | PN ---
PROGRESS NOTE DATE OF SERVICE: 10/06/2018 This is a 23-year-old male seen in consultation for GI bleed. He came into the hospital with about a month's worth of bright red bleeding per rectum. He presents to the emergency department with weakness, fatigue, lightheadedness, dizziness, and hemoglobin of 2.2. Since he has been here, he has received 6 units of PRBCs. Currently, not receiving any supplemental oxygen. He has got a basic IV and saline at 20 mL an hour. This morning's hemoglobin is 7.7. Yesterday, he had an EGD which was normal and a colonoscopy which showed extensive hemorrhoids. He apparently is going for hemorrhoidectomy today. The patient has been stable here even with his low hemoglobin. He has no particular complaints including pain. Currently resting comfortably, uneventful night. Respiratory status and hemodynamic status have been stable. Currently, temperature 98.1, heart rate 55, respiratory rate 15, blood pressure 103/57, mean 72, room air saturation 98%. Appears in no acute distress. HEENT: Examination is grossly unremarkable. Mucous membranes are moist. No oral lesions. NECK: Supple. Full range of motion. No adenopathy. CARDIOVASCULAR: Examination reveals regular rhythm and rate. S1, S2 normal. LUNGS: Clear, breath sounds equal. ABDOMEN: Soft. Bowel sounds are heard. EXTREMITIES: Intact. No cyanosis, clubbing, or edema. SKIN: Without rash. NEUROLOGIC: Examination is brief but nonfocal. LABS: Reviewed. White count 5.5, hemoglobin 7.7, hematocrit 24.3, platelet count 186,000. Sodium, potassium normal. Chloride is 111, CO2 is 23, anion gap is 6. BUN and creatinine were 6 and 0.62. No recent x-rays to report. Medications are reviewed. He is just on some magnesium replacement, Narcan, Protonix, potassium replacement and his basic IV. Procedure notes from gastroenterology show an upper endoscopy which revealed mild antral gastritis, but no evidence of esophagitis or peptic ulcer disease. Colonoscopy revealed large internal hemorrhoids with ulceration, but no active bleeding. ASSESSMENT: 1. Lower gastrointestinal bleed, with bright red bleeding per rectum, secondary to ulcerated internal hemorrhoids. The patient expected to have a hemorrhoidectomy this morning. EGD showed mild gastritis. 2. Status post 6 units of PRBCs with currently stable hemoglobin. 3. Stable hemodynamics and respiratory status. 4. Weakness, fatigue, dizziness, near syncope, all related to profound anemia. 5. History of marijuana use. 6. Previous history of hernia repair. PLAN: The results of the EGD and colonoscopy are reviewed. Patient's hemoglobin this morning is stable. Hemodynamics and respiratory status are stable. The patient apparently is going for hemorrhoidectomy today. He can be transferred out of the unit later today. No additional recommendations are made. Prognosis is good. MMODL / IJN: [id number] /
[2018-10-06] MEDS ORDERED: IV FLUID CONTINUATION 350 ML IV ONE (10:02)
[2018-10-06] MEDS ORDERED: ceFAZolin IN SWFI 2 GM/20 ML SYRINGE IVP STA (10:23)
[2018-10-06] MEDS ORDERED: fentaNYL (PF) 50 MCG/ML 2 ML AMP ONE (10:46)
[2018-10-06] MEDS ORDERED: PROPOFOL 10 MG/ML 20 ML VIAL IV ONE (10:46)
[2018-10-06] MEDS ORDERED: MIDAZOLAM 2 MG/2 ML VIAL ONE (10:46)
[2018-10-06] MEDS ORDERED: LACTATED RINGERS 1,000 ML IV ONE (11:05)
[2018-10-06] MEDS ORDERED: BUPIVACAIN-EPI 0.25%-1:200,000 30 ML VIAL SQ ONE (11:05)
[2018-10-06] MEDS ORDERED: GELATIN SPONGE,ABSORB (LARGE) 1 EACH SPONGE TOPICAL ONE (11:24)
--- NOTE | 2018-10-06 11:40 | P.OP ---
Date of Procedure: 10/06/18 Preoperative Diagnosis: Internal and external hemorrhoids Postoperative Diagnosis: Internal and external hemorrhoids Procedure(s) Performed: Internal and external hemorrhoidectomy Anesthesia: MAC, local Surgeon: Vinnie Ponce Estimated Blood Loss (ml): 20 Pathology: other (Internal and external hemorrhoids) Condition: stable Disposition: PACU Description of Procedure: The patient's placed on the operative table in the prone position. He received IV sedation. His anus was prepped and draped usual sterile fashion. The anus was localized in 4 quadrants. The patient had very large internal/external hemorrhoids. Using the anal retractor the left lateral hemorrhoidal column was grasped. Using the Harmonic scissors the rectus performed. 3-0 Vicryl was used to close the mucosa. Patient had another large hemorrhoidal column located in the right lateral position. This was grasped with Allis clamps and then using the Harmonic scissors the hemorrhoid was performed. The mucosa was reapproximated using 3-0 Vicryl suture. There is no significant bleeding seen. Patient was sent to recovery room stable condition.
[2018-10-06 11:49] VITALS: RESP 16
[2018-10-06] MEDS: HYDROmorphone 1 MG/ML 1 ML SYRINGE IVP PRN ×3 (13:02→23:55)
[2018-10-06] MEDS ORDERED: SODIUM CHLORIDE 0.9% 1,000 ML IV ONE (14:22)
[2018-10-06 14:57] LABS: Anisocytosis Moderate; Basophils # (A) 0.1 k/uL (0-0.2); Basophils % (A) 1 %; Eosinophils % (A) 1 %; HCT 25.2 % (39.0-53.0); HGB 7.7 gm/dL (13.0-17.5); Hypochromasia Marked; Lymphocytes # (A) 1.5 k/uL (1.0-4.8); Lymphocytes % (A) 24 %; MCH 24.2 pg (25.0-35.0); MCHC 30.7 g/dL (31.0-37.0); MCV 78.9 fL (80.0-100.0); Mean Platelet Volume 8.6; Microcytosis Moderate; Monocytes # (A) 0.3 k/uL (0-1.0); Monocytes % (A) 5 %; Neutrophils # (A) 4.1 k/uL (1.3-7.7); Neutrophils % (A) 68 %; Platelet Count 218 k/uL (150-450); Poikilocytosis Marked; RDW 20.1 % (11.5-15.5)
[2018-10-06] MEDS: DOCUSATE 100 MG CAP PO SCH (19:46)
[2018-10-06] MEDS: HYDROcodone/APAP 7.5-325MG 1 EACH TAB PO PRN (19:46)
--- NOTE | 2018-10-06 20:02 | PN ---
PROGRESS NOTE CHIEF COMPLAINT: Blood loss anemia and rectal bleeding. HISTORY OF PRESENT ILLNESS: This gentleman was scoped yesterday and apparently has a hemorrhoid. It is going to be removed today at surgery. PHYSICAL EXAM: He remains pale, but he is up and about. Chest is clear. IMPRESSION: Profound blood loss anemia secondary to bleeding hemorrhoids. PLAN: Hemorrhoidectomy today. MMODL / IJN: [id number] /
[2018-10-06 23:16] VITALS: PULSE 70
[2018-10-07] MEDS: HYDROmorphone 1 MG/ML 1 ML SYRINGE IVP PRN (04:31)
[2018-10-07 05:59] VITALS: BP 103/57; TEMP 98.3
[2018-10-07] MEDS: DOCUSATE 100 MG CAP PO SCH (07:57)
[2018-10-07] MEDS: PANTOPRAZOLE 40 MG/10 ML VIAL IVP SCH (07:57)
[2018-10-07] MEDS: HYDROcodone/APAP 7.5-325MG 1 EACH TAB PO PRN (08:00)
[2018-10-07 09:23] VITALS: BMI 19.1
--- NOTE | 2018-10-07 10:13 | P.PN ---
Subjective Progress Note Date: 10/07/18 CHIEF COMPLAINT: Anemia HISTORY OF PRESENT ILLNESS: Patient seen and examined at bedside. Patient is status post hemorrhoidectomy. He is doing well this morning. Tolerating diet. Hemoglobin remained stable. He is hoping to be discharged home today. PHYSICAL EXAM: VITAL SIGNS: Reviewed. GENERAL: Well-developed in no acute distress. HEENT: No sclera icterus. Extraocular movements grossly intact. Moist buccal mucosa. Head is atraumatic, normocephalic. ABDOMEN: Soft. Nondistended. Nontender. NEUROLOGIC: Alert and oriented. Cranial nerves II through XII grossly intact. ASSESSMENT: 1. Status post hemorrhoidectomy PLAN: Patient is stable for discharge from a surgical standpoint. He is to follow up with Dr. Ponce in one week. Nurse practitioner note has been reviewed by physician. Signing provider agrees with the documented findings, assessment, and plan of care. Objective - Vital Signs Vital signs: Vital Signs Temp 98.3 F 10/07/18 05:20 Pulse 70 10/07/18 05:20 Resp 16 10/07/18 05:20 BP 103/57 10/07/18 05:20 Pulse Ox 100 10/07/18 05:20 Intake & Output 10/06/18 10/07/18 10/07/18 18:59 06:59 18:59 Intake Total 1090 Output Total 510 2250 Balance 580 -2250 Weight 60.4 kg 60.4 kg Intake: IV 990 Sodium Chloride 0.9% 1, 40 000 ml @ 20 mls/hr IV . Q24H DANIEL Rx#:[id number] Intake, IV Titration 100 Amount Magnesium Sulfate-D5w Pmx 100 1 gm In Dextrose/Water 1 100ml.bag @ 100 mls/hr IVPB Q1H DANIEL Rx#: [id number] Output: Urine 500 2250 Straight 900 Estimated Blood Loss 10 Other: Voiding Method Urinal Urinal # Voids 1 - Labs CBC & Chem 7: 10/06/18 14:29 10/06/18 04:30 Labs: Abnormal Lab Results - Last 24 Hours (Table) 10/06/18 Range/Units 14:29 RBC 3.20 L (4.30-5.90) m/uL Hgb 7.7 L (13.0-17.5) gm/dL Hct 25.2 L (39.0-53.0) % MCV 78.9 L (80.0-100.0) fL MCH 24.2 L (25.0-35.0) pg MCHC 30.7 L (31.0-37.0) g/dL RDW 20.1 H (11.5-15.5) % Microbiology - Last 24 Hours (Table) 10/03/18 11:31 Blood Culture - Preliminary Blood No Growth after 72 hours
[2018-10-07 11:20] LABS: African American GFR (CKD) >90 (>60 ml/min/1.73 sqM); Anion Gap 7 mmol/L; Blood Urea Nitrogen 2 mg/dL (9-20); Calcium 8.9 mg/dL (8.4-10.2); Carbon Dioxide 26 mmol/L (22-30); Chloride 107 mmol/L (98-107); Glucose 108 mg/dL (74-99); Magnesium 1.8 mg/dL (1.6-2.3); Phosphorus 3.2 mg/dL (2.5-4.5); Potassium 3.8 mmol/L (3.5-5.1); Sodium 140 mmol/L (137-145)
[2018-10-07 11:25] LABS: Anisocytosis Moderate; Basophils % (A) 0 %; Eosinophils # (A) 0.1 k/uL (0-0.7); Eosinophils % (A) 0 %; HCT 26.5 % (39.0-53.0); HGB 8.1 gm/dL (13.0-17.5); Hypochromasia Marked; Lymphocytes # (A) 0.9 k/uL (1.0-4.8); Lymphocytes % (A) 7 %; MCH 24.3 pg (25.0-35.0); MCHC 30.7 g/dL (31.0-37.0); MCV 79.3 fL (80.0-100.0); Mean Platelet Volume 8.3; Microcytosis Moderate; Monocytes # (A) 0.6 k/uL (0-1.0); Monocytes % (A) 5 %; Neutrophils # (A) 11.8 k/uL (1.3-7.7); Neutrophils % (A) 87 %; Platelet Count 242 k/uL (150-450); Poikilocytosis Marked; RBC 3.34 m/uL (4.30-5.90); RDW 20.5 % (11.5-15.5); WBC 13.5 k/uL (3.8-10.6)
[2018-10-07] MEDS: SODIUM CHLORIDE 0.9% 1,000 ML IV SCH (11:30)
[2018-10-07] MEDS ORDERED: FERROUS SULFATE 325 MG TAB PO SCH (12:30)
--- NOTE | 2018-10-07 22:20 | DS ---
DISCHARGE SUMMARY CHIEF COMPLAINT: Rectal bleeding and blood loss anemia. HISTORY OF PRESENT ILLNESS AND PHYSICAL EXAM: Details of this man's history and physical can be found in the initial workup. LABORATORY STUDIES: While he was in the hospital, he had laboratory studies, details of which can be found in the laboratory section of his chart. COURSE IN HOSPITAL: After admission, he was started on bedrest, started intravenous fluids and transfused. After he stabilized, he had an endoscopy which revealed several large hemorrhoids. He was taken to the operating room for a partial hemorrhoidectomy and the remainder of the procedure will be deferred. It was felt that he could go home on his regular diet and activity and he will follow up in a few days in the office and he will be on iron and his hemoglobin will be followed. FINAL DIAGNOSES: 1. Blood loss anemia. 2. Bleeding hemorrhoids. OPERATIONS: Hemorrhoidectomy, endoscopy. He is improved. MMODL / CAMILLEN: [id number] /
[2018-10-08] MEDS ORDERED: PANTOPRAZOLE 40 MG TABLET PO SCH (09:00)
== END 2018-10-07 11:15 | disposition home or self-care (01) | DRG 348 ==
LOC: EC 09:44 → 2SICU 11:01 → 4MS4W 10-06 11:17
PROVIDERS: ADMIT Family Medicine; ATTEND Family Medicine
PROC: 30233N1 Transfusion of Nonautologous Red Blood Cells into Peripheral Vein, Percutaneous Approach (ICD-10-PCS; 2018-10-03)
PROC: 0DB98ZX Excision of Duodenum, Via Natural or Artificial Opening Endoscopic, Diagnostic (ICD-10-PCS; 2018-10-05)
PROC: 0DB78ZX Excision of Stomach, Pylorus, Via Natural or Artificial Opening Endoscopic, Diagnostic (ICD-10-PCS; 2018-10-05)
PROC: 0DJD8ZZ Inspection of Lower Intestinal Tract, Via Natural or Artificial Opening Endoscopic (ICD-10-PCS; 2018-10-05)
PROC: 06BY3ZC Excision of Hemorrhoidal Plexus, Percutaneous Approach (ICD-10-PCS; principal; 2018-10-06 10:30)
DX: K64.8 Other hemorrhoids (principal); D62 Acute posthemorrhagic anemia; K64.4 Residual hemorrhoidal skin tags; H54.61 Unqualified visual loss, right eye, normal vision left eye; K29.70 Gastritis, unspecified, without bleeding; Z83.79 Family history of other diseases of the digestive system; Z87.891 Personal history of nicotine dependence; G89.29 Other chronic pain; M54.5 Low back pain; V09.9XXS Pedestrian injured in unspecified transport accident, sequela
CPT/HCPCS: 36415; 43239; 45378; 80048; 80053; 81003; 82272; 83605; 83735; 84100; 84132; 85025; 85027; 85610; 85652; 85730; 86140; 86850; 86900; 86901; 86920; 87040; 88304; 88305; 93005; 96361; 96374; 99285

== ENCOUNTER → 2018-12-05 | Outpatient (CLI) | payer OTHER ==
--- NOTE | 2018-12-05 10:30 | FL ---
EXAMINATION TYPE: FL UGI air w esophagus DATE OF EXAM: 12/05/2018 COMPARISON: NONE HISTORY: Abdominal pain particularly when hungry for several months. TECHNIQUE: A double contrast esophagram and UGI study is performed. 2 minutes and 39 seconds of fluo roscopy time was utilized with 63 images saved. FINDINGS: The esophagus shows normal motility and emptying into the stomach. No evidence of hiatal hernia or s tricture noted. No significant gastroesophageal reflux was seen during real time performance of this study. The stomach shows normal distensibility and peristalsis. Thickening gastric rugal folds are seen thro ughout. No evidence of any mass or ulcer disease. No significant gastroesophageal reflux was seen du ring real time performance of this study. The duodenal bulb, sweep, and proximal small bowel loops are unremarkable. IMPRESSION: Thickened gastric rugal folds are most commonly related to gastritis. If there is furthe r concern endoscopy with biopsy could be considered.
== END | disposition home or self-care (01) ==
LOC: RADUSWWP 08:59
PROVIDERS: ATTEND Family Medicine
DX: R93.5 Abnormal findings on diagnostic imaging of other abdominal regions, including retroperitoneum (principal); R10.84 Generalized abdominal pain
CPT/HCPCS: 74246

== ENCOUNTER 2020-10-09 | Emergency (ER) | payer OTHER ==
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
== END 2020-10-09 16:59 | disposition home or self-care (01) ==
CPT/HCPCS: 99283

== ENCOUNTER 2020-11-05 08:37 | Emergency (ER) | payer OTHER ==
[2020-11-05 08:47] VITALS: BP 125/68; PULSE 82; RESP 18; TEMP 97.9
[2020-11-05] MEDS ORDERED: LIDOCAINE 1% INJ 10MG/ML (20 ML MDV) SQ ONE (09:12)
[2020-11-05] MEDS ORDERED: BACITRACIN OINT 1 EACH PACKET TOPICAL ONE (09:12)
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
== END 2020-11-05 09:59 | disposition home or self-care (01) ==
LOC: EC 08:37
DX: S71.012A Laceration without foreign body, left hip, initial encounter (principal); F12.90 Cannabis use, unspecified, uncomplicated; H54.61 Unqualified visual loss, right eye, normal vision left eye; W45.8XXA Other foreign body or object entering through skin, initial encounter
CPT/HCPCS: 99282; 12001; J2001

== ENCOUNTER → 2021-05-28 | Outpatient (CLI) | payer OTHER ==
--- NOTE | 2021-05-28 09:45 | US ---
EXAMINATION TYPE: US abdomen complete DATE OF EXAM: 05/28/2021 COMPARISON: NONE CLINICAL HISTORY: R10.13. Pt states generalized ABD pain x 4 years EXAM MEASUREMENTS: Liver Length: 14.8 cm Gallbladder Wall: 0.2 cm CBD: 0.5 cm Spleen: 10.8 cm Right Kidney: 11.3 x 4.7 x 6.5 cm Left Kidney: 10.3 x 5.8 x 5.9 cm Pancreas: 2mm duct visualized, otherwise appeared wnl Liver: wnl Gallbladder: wnl Evidence for sonographic Peter's sign: No CBD: wnl Spleen: wnl Right Kidney: wnl Left Kidney: wnl Upper IVC: wnl Abd Aorta: wnl The liver is homogenous. The intrahepatic portion of the IVC and proximal abdominal aorta are within normal limits. There is no evidence of cholelithiasis. Common bile duct is unremarkable. The visu alized portions of the pancreas are homogenous. The spleen is unremarkable. Kidneys are symmetric a nd free of hydronephrosis. No renal lesions are seen. IMPRESSION: Examination is within normal limits.
[2021-05-28 14:22] LABS: Basophils # (A) 0.04 X 10*3/uL (0.00-0.10); Basophils % (A) 0.6 %; Eosinophils # (A) 0.14 X 10*3/uL (0.04-0.35); Eosinophils % (A) 2.2 %; HCT 48.9 % (39.6-50.0); HGB 15.9 g/dL (13.0-17.0); Lymphocytes # (A) 1.98 X 10*3/uL (0.90-5.00); Lymphocytes % (A) 31.7 %; MCHC 32.5 g/dL (32.0-37.0); MCV 92.3 fL (80.0-97.0); Mean Platelet Volume 9.9 fL (9.5-12.2); Monocytes # (A) 0.49 X 10*3/uL (0.20-1.00); Monocytes % (A) 7.9 %; Neutrophils # (A) 3.57 X 10*3/uL (1.80-7.70); Neutrophils % (A) 57.3 %; Platelet Count 241 X 10*3/uL (140-440); RDW 13.3 % (11.5-14.5); WBC 6.24 X 10*3/uL (4.50-10.00)
[2021-05-28 14:31] LABS: ALT 9 U/L (10-49); AST 17 U/L (14-35); African American GFR (CKD) 142.9 (60.0-200.0); Albumin 4.5 g/dL (3.8-4.9); Albumin/Globulin Ratio 1.88 (1.60-3.17); Alkaline Phosphatase 91 U/L (41-126); BUN/Creat Ratio 14.63 Ratio (12.00-20.00); Blood Urea Nitrogen 11.7 mg/dL (9.0-27.0); Calcium 9.4 mg/dL (8.7-10.3); Carbon Dioxide 25.6 mmol/L (20.0-27.5); Chloride 105 mmol/L (96-109); Globulin 2.4 g/dL (1.6-3.3); Glucose 91 mg/dL (70-110); Non-African American GFR(CKD) 123.3 (60.0-200.0); Potassium 4.7 mmol/L (3.5-5.5); Sodium 140 mmol/L (135-145); Total Bilirubin <0.20 mg/dL (0.30-1.20); Total Protein 6.9 g/dL (6.2-8.2)
[2021-05-28 15:05] LABS: C Reactive Protein <0.30 mg/dL (0.00-0.80)
[2021-05-28 16:55] LABS: Erythrocyte Sedimentation Rate 2 mm/Hr (0-15)
== END | disposition home or self-care (01) ==
LOC: RADUSWWP 07:36
PROVIDERS: ATTEND Internal Medicine Gastroenterology
DX: K62.5 Hemorrhage of anus and rectum (principal); R10.13 Epigastric pain
CPT/HCPCS: 36415; 76700; 80053; 85025; 85652; 86140

== ENCOUNTER 2022-09-29 08:42 | Emergency (ER) | payer OTHER ==
[2022-09-29 09:03] VITALS: BP 113/66; PULSE 100; RESP 18; TEMP 98
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
== END 2022-09-29 10:19 | disposition home or self-care (01) ==
LOC: EC 08:42
DX: S61.201A Unspecified open wound of left index finger without damage to nail, initial encounter (principal); F12.90 Cannabis use, unspecified, uncomplicated; W26.8XXA Contact with other sharp object(s), not elsewhere classified, initial encounter
CPT/HCPCS: 99282

== ENCOUNTER 2023-01-03 08:07 | Emergency (ER) | payer OTHER ==
[2023-01-03] MEDS ORDERED: KETOROLAC 15 MG/ML 1 ML VIAL IM STA (08:23)
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
--- NOTE | 2023-01-03 08:52 | XR ---
EXAMINATION TYPE: XR foot complete RT, XR ankle complete RT DATE OF EXAM: 01/03/2023 COMPARISON: Right toe radiograph 10/16/2017 HISTORY: Fall, pain TECHNIQUE: Frontal, lateral and oblique images of the right foot and ankle are obtained. COMPARISON: None. FINDINGS: There is no acute fracture/dislocation evident. The joint spaces appear within normal valencia its. Ankle mortise is intact. Kagers fat pad is unremarkable. The overlying soft tissue appears unrem arkable. IMPRESSION: There is no acute fracture or dislocation seen.
[2023-01-03 09:52] VITALS: BP 124/73; PULSE 68; RESP 18; TEMP 97.9
== END 2023-01-03 09:52 | disposition home or self-care (01) ==
LOC: EC 08:07
DX: S93.401A Sprain of unspecified ligament of right ankle, initial encounter (principal); F12.90 Cannabis use, unspecified, uncomplicated; W19.XXXA Unspecified fall, initial encounter
CPT/HCPCS: 73610; 73630; 99283; 96372; 29515; J1885

== ENCOUNTER 2023-03-12 18:13 | Emergency (ER) | payer OTHER ==
[2023-03-12 18:32] VITALS: RESP 18
[2023-03-12] MEDS ORDERED: SODIUM CHLORIDE 0.9% 1,000 ML IV ONE (18:52)
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
[2023-03-12 19:07] LABS: Basophils % (A) 0 %; Eosinophils # (A) 0.2 k/uL (0-0.7); Eosinophils % (A) 1 %; HCT 45.1 % (39.0-53.0); Lymphocytes # (A) 2.7 k/uL (1.0-4.8); Lymphocytes % (A) 19 %; MCH 30.1 pg (25.0-35.0); MCHC 33.3 g/dL (31.0-37.0); MCV 90.3 fL (80.0-100.0); Mean Platelet Volume 7.3; Monocytes # (A) 0.8 k/uL (0-1.0); Monocytes % (A) 6 %; Neutrophils # (A) 10.3 k/uL (1.3-7.7); Neutrophils % (A) 73 %; Platelet Count 188 k/uL (150-450); RDW 14.3 % (11.5-15.5); WBC 14.1 k/uL (3.8-10.6)
[2023-03-12 19:16] LABS: African American GFR (CKD) >90 (>60 ml/min/1.73 sqM); Anion Gap 8 mmol/L; Blood Urea Nitrogen 10 mg/dL (9-20); Calcium 9.3 mg/dL (8.4-10.2); Carbon Dioxide 25 mmol/L (22-30); Chloride 108 mmol/L (98-107); Creatine Kinase 183 U/L (55-170); Glucose 94 mg/dL (74-99); Non-African American GFR(CKD) >90 (>60 ml/min/1.73 sqM); Potassium 3.5 mmol/L (3.5-5.1); Sodium 141 mmol/L (137-145)
[2023-03-12 19:21] LABS: INR 1.1 (<1.2); Partial Thromboplastin Time 25.5 sec (22.0-30.0)
[2023-03-12 19:27] LABS: Appearance,Urine Cloudy (Clear); Bilirubin,Urine Negative (Negative); Blood,Urine Large (Negative); Color,Urine Light Red; Glucose,Urine (UA) Negative (Negative); Ketones,Urine Negative (Negative); Leukocyte Esterase,Urine Trace (Negative); Nitrite,Urine Negative (Negative); PH, Urine 6.5 (5.0-8.0); Protein,Urine 1+ (Negative); RBC,Urine >182 /hpf (0-5); Urobilinogen,Urine <2.0 mg/dL (<2.0); WBC,Urine 7 /hpf (0-5)
[2023-03-12] MEDS ORDERED: MORPHINE SULFATE 4 MG/ML SYRINGE IVP STA (20:18)
--- NOTE | 2023-03-12 20:44 | CT ---
EXAMINATION TYPE: CT abdomen pelvis w con CT DLP: 706.6 mGycm, Automated exposure control for dose reduction was used. DATE OF EXAM: 03/12/2023 8:17 PM COMPARISON: None. CLINICAL INDICATION:Male, 27 years old with history of fall from height, hematuria; Hematuria after f alling from a roof. TECHNIQUE: Axial CT of the ;CT abdomen pelvis w con;Sagittal and coronal reformats were created on a separate workstation. Contrast used:100 ml mL of Isovue 300 with IV Contrast, (none if empty) Oral contrast used: without Oral Contrast (none if empty) FINDINGS: LOWER CHEST: Unremarkable ABDOMEN LIVER: Unremarkable GALLBLADDER AND BILE DUCTS: Unremarkable. PANCREAS: Unremarkable. SPLEEN: Unremarkable. ADRENAL GLANDS: Unremarkable. KIDNEYS AND URETERS: Delayed-phase contrast images demonstrate sharp bilateral calyces. There is con trast within the bilateral ureters and partially fills the urinary bladder without evidence of extrav asation. PELVIS BLADDER: Unremarkable REPRODUCTIVE: Unremarkable. ABDOMEN & PELVIS STOMACH AND BOWEL: No evidence of bowel obstruction. PERITONEUM/RETROPERITONEUM: No evidence of pneumoperitoneum or free fluid. VASCULATURE: No evidence of aortic aneurysm. MUSCULOSKELETAL: No acute osseous abnormalities, transitional vertebrae with right pulmonary sacraliz ation of the right transverse process. There is degeneration changes worse at the inferior end plate of L4. No evidence of spinal fracture. There is an acute fracture of the left distal radius with intr a-articular extension. LYMPH NODES: No gross evidence for lymphadenopathy. SOFT TISSUE/ABDOMINAL WALL: Unremarkable IMPRESSION: 1. Acute left distal right radius fracture with intra-articular extension. 2. The urinary bladder and kidneys appear intact on this single phase study. There is no extravasati on of contrast around the kidneys or proximal ureters.
[2023-03-12 21:22] VITALS: BP 129/70; PULSE 65; TEMP 98.3
== END 2023-03-12 21:14 | disposition home or self-care (01) ==
LOC: EC 18:13
DX: S52.572A Other intraarticular fracture of lower end of left radius, initial encounter for closed fracture (principal); S62.92XA Unspecified fracture of left hand, initial encounter for closed fracture; S61.511A Laceration without foreign body of right wrist, initial encounter; R31.9 Hematuria, unspecified; F12.90 Cannabis use, unspecified, uncomplicated; W11.XXXA Fall on and from ladder, initial encounter
CPT/HCPCS: 36415; 80048; 82550; 85025; 85610; 85730; 81001; 74177; 99284; 96374; 96361; J2270; Q9967

== ENCOUNTER → 2023-03-26 | Outpatient (CLI) | payer OTHER ==
--- NOTE | 2023-03-26 11:56 | CT ---
EXAMINATION TYPE: CT wrist LT wo con CT DLP: 123.70 mGycm, Automated exposure control for dose reduction was used. DATE OF EXAM: 03/26/2023 10:19 AM COMPARISON: None CLINICAL INDICATION:Male, 27 years old with history of M25.532 PAIN IN LEFT WRIST S52.572A; PHH, LT w rist other intraarticular fracture of lower end of LT radius. TECHNIQUE: Axial images were obtained of the CT wrist LT wo con, Additional coronal and sagittal refo rmatted images and soft tissue and bone window were obtained for review. 3-D reconstruction was creat ed on a separate workstation. Contrast used: mL of , (None if empty) Oral contrast used: (None if empty) FINDINGS: Comminuted intra-articular fracture of the distal radius with minimal displacement of some the fragments. Cast material is in place. Alignment is near anatomic. No significant angulation. No a dditional fractures visualized. There is soft tissue swelling. There is mild cortical step-off of the posterior ulnar aspect of the distal radius articular surface series 13 image 34 with gapping of the articular surface up to 2 mm. IMPRESSION: Comminuted intra-articular fracture of the distal radius. There is mild step-off of the ulnar aspect posteriorly of the radius articular surface with mild gapping of the fracture fragments of the 2 mm.
== END | disposition home or self-care (01) ==
LOC: RADCTMAIN 09:44
PROVIDERS: ATTEND Orthopaedic Surgery
DX: S52.572A Other intraarticular fracture of lower end of left radius, initial encounter for closed fracture (principal); M25.532 Pain in left wrist; S52.692A Other fracture of lower end of left ulna, initial encounter for closed fracture

== ENCOUNTER 2023-12-09 08:37 | Emergency (ER) | payer OTHER | END 2023-12-09 09:45 | disposition home or self-care (01) | LOC: EC 08:37 | DX: K05.00 Acute gingivitis, plaque induced (principal) | CPT/HCPCS: 99282 ==

== ENCOUNTER 2024-02-05 09:11 | Emergency (ER) | payer OTHER ==
[2024-02-05 09:17] VITALS: RESP 18
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
[2024-02-05] MEDS: BACITRACIN OINT 1 EACH PACKET TOPICAL ONE (09:30)
[2024-02-05] MEDS: DIPH,PERTUS(ACELL)TETVAC-LF 0.5 ML VIAL IM ONE (09:30)
[2024-02-05] MEDS: LIDOCAINE 1% INJ 10MG/ML (20 ML MDV) SQ ONE (09:30)
[2024-02-05 10:06] VITALS: BP 112/78; PULSE 81; TEMP 98.2
== END 2024-02-05 10:04 | disposition home or self-care (01) ==
LOC: EC 09:11
CPT/HCPCS: 12002; 90471; 90715; 99283

== ENCOUNTER 2024-06-28 12:08 | Emergency (ER) | payer OTHER ==
[2024-06-28 12:15] VITALS: TEMP 98.5
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
[2024-06-28] MEDS: SODIUM CHLORIDE 0.9% 1,000 ML IV STA (12:44)
[2024-06-28] MEDS: ONDANSETRON 4 MG/2 ML VIAL IVP STA (12:49)
[2024-06-28] MEDS: KETOROLAC 15 MG/ML 1 ML VIAL IVP STA (12:50)
[2024-06-28 13:14] LABS: Basophils % (A) 0 %; Eosinophils # (A) 0.1 k/uL (0-0.7); Eosinophils % (A) 1 %; HCT 51.6 % (39.0-53.0); HGB 17.1 gm/dL (13.0-17.5); Lymphocytes % (A) 23 %; MCH 28.8 pg (25.0-35.0); MCHC 33.1 g/dL (31.0-37.0); MCV 86.8 fL (80.0-100.0); Mean Platelet Volume 6.9; Monocytes # (A) 0.6 k/uL (0-1.0); Monocytes % (A) 7 %; Neutrophils # (A) 6.1 k/uL (1.3-7.7); Neutrophils % (A) 68 %; Platelet Count 226 k/uL (150-450); RBC 5.94 m/uL (4.30-5.90)
[2024-06-28 13:17] LABS: ALT 15 U/L (4-49); AST 26 U/L (17-59); African American GFR (CKD) >90 (>60 ml/min/1.73 sqM); Albumin 5.3 g/dL (3.5-5.0); Alkaline Phosphatase 89 U/L (38-126); Anion Gap 14 mmol/L; Blood Urea Nitrogen 15 mg/dL (9-20); Calcium 10.1 mg/dL (8.4-10.2); Carbon Dioxide 24 mmol/L (22-30); Chloride 100 mmol/L (98-107); Glucose 94 mg/dL (74-99); Lipase 67 U/L (23-300); Non-African American GFR(CKD) >90 (>60 ml/min/1.73 sqM); Sodium 138 mmol/L (137-145); Total Bilirubin 1.3 mg/dL (0.2-1.3); Total Protein 8.3 g/dL (6.3-8.2)
[2024-06-28 13:20] LABS: Amorphous Sediment,Urine Rare /hpf; Appearance,Urine Clear (Clear); Bilirubin,Urine Negative (Negative); Blood,Urine Trace (Negative); Color,Urine Yellow; Glucose,Urine (UA) Negative (Negative); Ketones,Urine 3+ (Negative); Leukocyte Esterase,Urine Negative (Negative); Mucus,Urine Many /hpf; Nitrite,Urine Negative (Negative); PH, Urine 5.5 (5.0-8.0); Protein,Urine 1+ (Negative); RBC,Urine 1 /hpf (0-5); WBC,Urine 1 /hpf (0-5)
--- NOTE | 2024-06-28 14:04 | CT ---
EXAMINATION TYPE: CT abdomen pelvis w con DATE OF EXAM: 06/28/2024 COMPARISON: 03/12/2023 CLINICAL INDICATION: Male, 28 years old with history of LLQ abd pain; PHH, LLQ abdominal pain TECHNIQUE: Performed without Oral Contrast and with IV Contrast, patient injected with 100 ml mL of Isovue 300. CT DLP: 601.[address] CTDI: mGy Automated exposure control for dose reduction was used. FINDINGS: There is a 4.3 mm groundglass nodule in the right lung base which is likely benign. The gallbladder is normal without distention, wall thickening, pericholecystic fluid or gallstones. T here is no biliary ductal dilatation. There is no focal mass or organomegaly involving the liver, pancreas, spleen or adrenal glands. There is no solid renal mass or hydronephrosis and there is homogeneous contrast enhancement of the r enal parenchyma. The caliber the abdominal aorta is normal is no retroperitoneal adenopathy or hemorr renuka. The bowel loops are normal in caliber and there is no evidence of dilatation or obstruction. No infla mmatory changes are identified in the bowel wall or mesentery. There is no free intraperitoneal air or fluid. No pelvic mass, free fluid, abscess or adenopathy. The osseous structures and soft tissues are intact. IMPRESSION: No significant abnormality seen. No acute changes within the abdomen and pelvis [facility] Gera Mcclain, , 06/28/2024 2:01 PM
[2024-06-28] MEDS: ONDANSETRON 4 MG ODT STARTER PACK 2 TAB BTL PO STA (14:32)
[2024-06-28 14:41] VITALS: BP 118/81; PULSE 89; RESP 18
== END 2024-06-28 14:59 | disposition home or self-care (01) ==
LOC: EC 12:08
DX: A08.4 Viral intestinal infection, unspecified (principal)
CPT/HCPCS: 36415; 80053; 83605; 83690; 85025; 81001; 74177; 99284; 96374; 96375; 96361; J2405; J1885; S0119; Q9967